=== PATIENT | male | born 2000 | race Caucasian/White ===

== ENCOUNTER 2019-12-31 12:16 | Emergency (ER) | payer SELFPAY ==
--- NOTE | 2019-12-31 13:20 | Emergency Department Report ---
Blank Doc - Documentation Documentation: 19-year-old male that presents with chin lac. This initial assessment/diagnostic orders/clinical plan/treatment(s) is/are subject to change based on patient's health status, clinical progression and re- assessment by fellow clinical providers in the ED. Further treatment and workup at subsequent clinical providers discretion. Patient/guardians urged not to elope from the ED as their condition may be serious if not clinically assessed and managed. Initial orders include: 1- Patient sent to [facility] for further evaluation and treatment
[2019-12-31 13:22] VITALS: BP 117/80
[2019-12-31] MEDS ORDERED: DIPHtheria,PERTUSSIS(ACELL),TETANUS VACCINE/PF 0.5 ML VIAL IM ONE (15:18)
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
== END 2019-12-31 15:53 | disposition home or self-care (01) ==
LOC: ED 12:16
DX: S01.81XA Laceration without foreign body of other part of head, initial encounter (principal); R58 Hemorrhage, not elsewhere classified; W22.8XXA Striking against or struck by other objects, initial encounter; Y93.89 Activity, other specified; Y92.89 Other specified places as the place of occurrence of the external cause; Y99.8 Other external cause status
CPT/HCPCS: 90471; 90715